=== PATIENT | female | born 1930 | race Caucasian/White ===

== ENCOUNTER 2017-08-08 13:11 | Emergency (ER) | payer MEDICARE, MEDICAID ==
[~2017-08-08] VITALS: Ht 162.6 cm; Wt 90.0 kg
[~2017-08-08 13:11] MED LIST: ASPI81TA52 PO; BENA20TA2 PO; FAMO20TA8 PO; HYDR-569 PO; MONT10TA21 PO; MULT-1161 PO; OMEG-166 PO; PANT-47 PO; SIMV20TA5 PO
[2017-08-08] MEDS ORDERED: aspirin 81mg tab.chew PO ONE (13:15)
[2017-08-08 13:41] LABS: BASOPHILS % (AUTO) 0.2 % (0-1); EOSINOPHILS # (AUTO) 0.1 X10'3 (0-0.9); EOSINOPHILS % (AUTO) 1.8 % (0-6); HEMATOCRIT 37.3 % (35.0-45.0); HEMOGLOBIN 12.3 g/dl (12.0-16.0); LYMPHOCYTES # (AUTO) 2.1 X10'3 (1.1-4.8); LYMPHOCYTES % (AUTO) 37.3 % (21-51); MEAN CORPUSCULAR HEMOGLOBIN 28.8 PG (27.0-31.0); MEAN CORPUSCULAR VOLUME 87.3 FL (78-98); MEAN PLATELET VOLUME 8.8 FL (7.4-10.4); MONOCYTES # (AUTO) 0.5 X10'3 (0-0.9); MONOCYTES % (AUTO) 9.1 % (2-12); NEUTROPHILS % (AUTO) 51.6 % (42-75); PLATELET COUNT 215 X10'3 (140-440); RED BLOOD COUNT 4.27 X10'6 (4.20-5.60); RED CELL DISTRIBUTION WIDTH 14.5 % (11.5-14.5); WHITE BLOOD COUNT 5.7 X10'3 (4.5-11.0)
[2017-08-08 14:11] LABS: ANION GAP 5 (8-16); BILIRUBIN,TOTAL 0.5 MG/DL (0.1-1.0); BLOOD UREA NITROGEN 31 MG/DL (7-18); BUN/CREATININE RATIO 19.9 (6.6-38.0); CALCIUM 9.6 MG/DL (8.5-10.1); CHLORIDE 106 MMOL/L (99-107); CREATININE 1.56 MG/DL (0.40-0.90); GLUCOSE 108 MG/DL (70-104); POTASSIUM 4.1 MMOL/L (3.5-5.1); SODIUM 140 MMOL/L (135-145); TOTAL CARBON DIOXIDE 28.6 MMOL/L (24-32); TOTAL PROTEIN 7.1 G/DL (6.4-8.2); eGFR 32 ML/MIN
[2017-08-08 14:12] LABS: ALANINE AMINOTRANSFERASE 21 U/L (12-78); ALBUMIN 3.7 G/DL (3.4-5.0); ALBUMIN/GLOBULIN RATIO 1.1 (1.1-1.5); ALKALINE PHOSPHATASE 75 IU/L (46-116); ASPARTATE AMINO TRANSFERASE 24 U/L (10-37)
[2017-08-08 14:14] LABS: MAGNESIUM 1.7 MG/DL (1.5-2.4)
[2017-08-08] MEDS ORDERED: normal saline 1000ML IV soln IVB ONE ×2 (14:30→14:40)
[2017-08-08 14:32] LABS: D-DIMER 1.42 MG/L FEU (0-0.50)
[2017-08-08 15:54] VITALS: BP 148/83
== END 2017-08-08 15:54 | disposition home or self-care (01) ==
LOC: ER 13:11
DX: E86.0 Dehydration (principal); R55 Syncope and collapse; Z95.0 Presence of cardiac pacemaker; Z88.2 Allergy status to sulfonamides; Z88.8 Allergy status to other drugs, medicaments and biological substances; Z88.6 Allergy status to analgesic agent
CPT/HCPCS: 36415; 71045; 80053; 83735; 83880; 85025; 85379; 93005; 93970; 96360; 99285; J7030; 84484